=== PATIENT | male | born 1960 | race Caucasian/White ===

== ENCOUNTER 2017-12-16 07:06 | Day surgery (SDC) | payer BC, SELFPAY ==
[2017-12-16] VITALS (12 sets, daily range): BP systolic 118–176; BP diastolic 63–96; PULSE 66–80; RESP 16–22; TEMP 36.4; O2SAT 92–97; BMI 50.3; BMI 49.8
--- NOTE | 2017-12-16 | IR_ITS ---
CARDIAC CATHETERIZATION DATE OF CATHETERIZATION:12/16/2017 12:27 PM PROCEDURES: 1. Left heart catheterization 2. Left ventriculogram 3. Selective coronary angiogram 4. Selective engagement left internal mammary artery with angiography INDICATION FOR TEST: 1. Coronary artery disease 2. History of coronary bypass surgery 3. Angina pectoris class III Informed consent was obtained prior to the procedure. COMPLICATIONS: None ESTIMATED BLOOD LOSS: Less than 10 ml. TECHNIQUE: One percent lidocaine used to anesthetize the right groin. The right femoral artery was accessed via the Seldinger technique and a 5 [place] sheath was placed in the right femoral artery. A JL 4 JR4 catheter were used to perform left heart catheterization left ventriculogram and selective coronary angiography. The JR4 catheter was used to selectively intubate the left internal mammary artery. At the end of the procedure the sheath was removed good hemostasis was achieved using manual pressure patient transferred to the postop holding area in stable condition ANGIOGRAPHIC RESULTS: 1. The left main artery normal 2. The left anterior descending artery is ostially occluded 3. The circumflex artery is nondominant and has proximal 20% stenoses. The large first obtuse marginal artery is a long concentric 40% stenosis. The true circumflex artery then sends over a large collateral to the distal dominant right coronary artery 4. The right coronary artery ostially occluded and fills via left to light collaterals entirely originating from the circumflex artery 5. The CHAMORRO ventriculogram reveals mild left ventricular dilatation with ejection fraction of 45-50% 6. The left ventricular end-diastolic pressure 10 to 15 mmHg 7. Left internal mammary artery is a very large graft in its proximal segment. Throughout its entire course and is free of atherosclerosis and then anastomoses onto the LAD. The LAD itself is widely patent free of atherosclerotic plaque. 8. A radial artery T's off the left internal mammary artery and supplies a medium sized first diagonal artery which is also of distal plaque IMPRESSION: 1. Chronically occluded proximal dominant right coronary artery which fills via a large collateral network from the nondominant circumflex artery 2. Mild to moderate nonflow limiting disease first obtuse marginal artery 3. Excellent surgical revascularization of the first diagonal artery and LAD as described above 4. Mild left ventricular dilatation with mild reduction in ejection fraction 5. Normal left ventricular end-diastolic pressure PLAN: 1. Medical management 2. Risk factor modification 3. Patient's symptoms stemming primarily from deconditioning
[2017-12-16 07:57] LABS: Basophils # 0.1 K/mm3 (0-0.2); Basophils % 1.2 % (0.1-2.0); Eosinophils # 0.2 K/mm3 (0.0-0.4); Eosinophils % 2.8 % (0.1-12.0); Hematocrit 49.7 % (42.0-52.0); Hemoglobin 16.8 g/dL (14.1-18.0); Lymphocytes # 1.9 K/mm3 (0.7-4.5); Lymphocytes % 27.6 K/mm3 (10-50); Mean Corpuscular HGB Conc 33.7 g/dL (31.8-35.4); Mean Corpuscular Hemoglobin 29.1 pg (27.0-31.2); Mean Corpuscular Volume 86.3 fl (80-94); Mean Platelet Volume 9.3 fl (7.4-10.4); Monocytes # 0.4 K/mm3 (0.1-1.0); Monocytes % 5.8 % (1.7-9.3); Neutrophils # 4.3 K/mm3 (1.8-7.8); Neutrophils % 62.7 % (37.0-80.0); Platelet Count 175 K/mm3 (142-424); Red Blood Count 5.76 M/mm3 (4.60-6.20); Red Cell Distribution Width 14.4 % (11.5-17.5); White Blood Count 6.9 K/mm3 (4.8-10.8)
[2017-12-16 08:01] LABS: Anion Gap 10.1 mEq/L (5-15); Blood Urea Nitrogen 16 mg/dL (7-18); Carbon Dioxide 29 mmol/L (21.0-32.0); Chloride 104 mmol/L (98-107); Creatinine Clearance Estimated 97 mL/min (0-300); Creatinine,Serum 0.96 mg/dL (0.70-1.30); Estimated Glomerular Filt Rate 81 ml/min (>60); GFR (African American) 98 ML/MIN (>60); Glucose 256 mg/dL (74-106); Potassium 4.1 mmoL/L (3.5-5.1); Sodium 139 mmol/L (136-145)
[2017-12-16 08:38] LABS: Alanine Aminotransferase 66 U/L (12-78); Albumin Level 3.9 gm/dL (3.4-5.0); Alkaline Phosphatase 164 U/L (46-116); Aspartate Amino Transferase 25 U/L (15-37); Bilirubin,Direct 0.1 mg/dL (0.0-0.2); Bilirubin,Total 0.3 mg/dL (0.2-1.0); Chol/HDL Ratio 3.8 (1-3.5); Cholesterol 223 mg/dL (140-200); HDL Cholesterol 58 mg/dL (27-67); LDL Cholesterol 130 mg/dL (0-130); Total Protein,Serum 7.4 gm/dL (6.4-8.2); Triglycerides 177 mg/dL (30-200); VLDL Cholesterol 35 mg/dL (0-40)
--- NOTE | 2017-12-17 10:41 | PC.NURSE ---
post procedure call made, pt states he is doing, well, denies any questions/concerns at this time
== END 2017-12-16 15:58 | disposition home or self-care (01) ==
LOC: CATHLAB 07:10
PROVIDERS: Visit Provider Internal Medicine
DX: I25.119 Atherosclerotic heart disease of native coronary artery with unspecified angina pectoris (principal); Z95.1 Presence of aortocoronary bypass graft; I11.9 Hypertensive heart disease without heart failure; E78.2 Mixed hyperlipidemia; E11.9 Type 2 diabetes mellitus without complications
CPT/HCPCS: 80048; 80061; 80076; 85025; 93459; 99152; 99153; C1725; C1769; C1894; J1644; Q9967

== ENCOUNTER → 2019-12-13 10:00 | Outpatient (CLI) | payer BC, SELFPAY ==
[2019-12-13 10:32] LABS: Alanine Aminotransferase 65 U/L (12-78); Albumin Level 4.1 gm/dL (3.4-5.0); Alkaline Phosphatase 175 U/L (46-116); Aspartate Amino Transferase 33 U/L (15-37); Bilirubin,Direct 0.2 mg/dL (0.0-0.2); Bilirubin,Indirect 1.2 mg/dL (0.0-0.9); Bilirubin,Total 1.4 mg/dL (0.2-1.0); Chol/HDL Ratio 4.6 (1-3.5); Cholesterol 224 mg/dL (140-200); HDL Cholesterol 49 mg/dL (27-67); LDL Cholesterol 145 mg/dL (0-130); Total Protein,Serum 7.5 gm/dL (6.4-8.2); Triglycerides 149 mg/dL (30-200); VLDL Cholesterol 30 mg/dL (0-40)
== END ==
PROVIDERS: Visit Provider Urology
DX: E78.2 Mixed hyperlipidemia (principal); I11.9 Hypertensive heart disease without heart failure; I25.10 Atherosclerotic heart disease of native coronary artery without angina pectoris
CPT/HCPCS: 36415; 80061; 80076

== ENCOUNTER → 2019-12-27 09:23 | Outpatient (CLI) | payer BC, SELFPAY ==
[2019-12-27 09:48] LABS: Basophils # 0.1 K/mm3 (0-0.2); Basophils % 1.3 % (0.1-2.0); Eosinophils # 0.3 K/mm3 (0.0-0.4); Eosinophils % 2.9 % (0.1-12.0); Hematocrit 50.5 % (42.0-52.0); Hemoglobin 16.7 g/dL (14.1-18.0); Lymphocytes # 2.4 K/mm3 (0.7-4.5); Lymphocytes % 28.4 % (10-50); Mean Corpuscular HGB Conc 33.1 g/dL (31.8-35.4); Mean Corpuscular Hemoglobin 28.9 pg (27.0-31.2); Mean Corpuscular Volume 87.2 fl (80-94); Mean Platelet Volume 9.7 fl (7.4-10.4); Monocytes # 0.4 K/mm3 (0.1-1.0); Monocytes % 4.6 % (1.7-9.3); Neutrophils # 5.3 K/mm3 (1.8-7.8); Neutrophils % 62.9 % (37.0-80.0); Platelet Count 182 K/mm3 (142-424); Red Cell Distribution Width 13.8 % (11.5-17.5); White Blood Count 8.5 K/mm3 (4.8-10.8)
[2019-12-27 11:24] LABS: Anion Gap 15.3 mEq/L (5-15); Blood Urea Nitrogen 14 mg/dL (7-18); Carbon Dioxide 28 mmol/L (21.0-32.0); Chloride 100 mmol/L (98-107); Creatinine,Serum 1.04 mg/dL (0.70-1.30); Estimated Glomerular Filt Rate 73 ml/min (>60); GFR (African American) 89 ML/MIN (>60); Glucose 361 mg/dL (74-106); Potassium 4.3 mmoL/L (3.5-5.1); Sodium 139 mmol/L (136-145)
== END ==
PROVIDERS: Visit Provider Internal Medicine
DX: I25.10 Atherosclerotic heart disease of native coronary artery without angina pectoris (principal); Z95.1 Presence of aortocoronary bypass graft
CPT/HCPCS: 36415; 80048; 85025

== ENCOUNTER 2023-12-02 09:22 | Outpatient (CLI) | payer OTHER, SELFPAY ==
[2023-12-02 10:19] LABS: Alanine Aminotransferase 37 U/L (12-78); Albumin Level 4.8 g/dl (3.5-5.0); Alkaline Phosphatase 112 U/L (38-126); Anion Gap 12.5 mEq/L (5-15); Aspartate Amino Transferase 32 U/L (17-59); Bilirubin,Direct 0.1 mg/dl (0.0-0.4); Bilirubin,Indirect 0.6 mg/dL (0.0-0.9); Bilirubin,Total 0.7 mg/dl (0.2-1.3); Bilirubin,Unconjugated 0.6 mg/dL (0.0-1.1); Blood Urea Nitrogen 20 mg/dl (9-20); Calcium 9.5 mg/dl (8.4-10.2); Carbon Dioxide 24 mmol/L (22.0-30.0); Chloride 104 mmol/L (98-107); Estimated Glomerular Filt Rate 98 ml/min (>60); GFR (African American) 119 ML/MIN (>60); Glucose 299 mg/dl (74-100); HDL Cholesterol 48 mg/dl (40-60); Potassium 4.5 mmoL/L (3.5-5.1); Sodium 136 mmol/L (136-145); Total Protein,Serum 7.6 g/dl (6.3-8.2); Triglycerides 378 mg/dl (30-150); VLDL Cholesterol 76 mg/dL (0-40)
[2023-12-02 10:22] LABS: Chol/HDL Ratio 6.8 (1-3.5); Cholesterol > 325 mg/dl (140-200)
[2023-12-02 10:30] LABS: Direct LDL Cholesterol 209.21 mg/dL (100-129)
[2023-12-02 10:34] LABS: Free T4 (Free Thyroxine) 1.15 ng/dl (0.78-2.19)
[2023-12-02 10:48] LABS: Thyroid Stimulating Hormone 2.53 uIU/mL (0.465-4.68)
== END 2023-12-02 23:59 ==
PROVIDERS: PCP Family Medicine; Visit Provider Nurse Practitioner Family
DX: E11.9 Type 2 diabetes mellitus without complications (principal); E78.5 Hyperlipidemia, unspecified; I11.9 Hypertensive heart disease without heart failure; I25.10 Atherosclerotic heart disease of native coronary artery without angina pectoris; R06.00 Dyspnea, unspecified; Z95.1 Presence of aortocoronary bypass graft; Z87.891 Personal history of nicotine dependence
CPT/HCPCS: 36415; 80048; 80061; 80076; 84439; 84443

== ENCOUNTER 2023-12-05 09:57 | Outpatient (CLI) | payer OTHER, SELFPAY ==
[2023-12-05 10:30] LABS: Basophils # 0.1 K/mm3 (0-0.2); Basophils % 0.9 % (0.1-2.0); Eosinophils # 0.2 K/mm3 (0.0-0.4); Hematocrit 50.5 % (42.0-52.0); Hemoglobin 17.9 g/dL (14.1-18.0); Lymphocytes # 2.4 K/mm3 (0.7-4.5); Lymphocytes % 30.3 % (10-50); Mean Corpuscular HGB Conc 35.5 g/dL (31.8-35.4); Mean Corpuscular Hemoglobin 30.4 pg (27.0-31.2); Mean Corpuscular Volume 85.8 fl (80-94); Mean Platelet Volume 9.1 fl (7.4-10.4); Monocytes # 0.4 K/mm3 (0.1-1.0); Monocytes % 4.6 % (1.7-9.3); Neutrophils # 4.8 K/mm3 (1.8-7.8); Neutrophils % 62.2 % (37.0-80.0); Platelet Count 151 K/mm3 (142-424); Red Blood Count 5.89 M/mm3 (4.60-6.20); White Blood Count 7.8 K/mm3 (4.8-10.8)
== END 2023-12-05 23:59 ==
LOC: LAB 09:58
PROVIDERS: PCP Family Medicine; Visit Provider Nurse Practitioner Family
DX: E11.9 Type 2 diabetes mellitus without complications (principal); E78.5 Hyperlipidemia, unspecified; I11.9 Hypertensive heart disease without heart failure; Z95.1 Presence of aortocoronary bypass graft
CPT/HCPCS: 36415; 85025